=== PATIENT | male | born 1995 | race Caucasian/White ===

== ENCOUNTER 2016-12-15 12:43 | Emergency (ER) | payer OTHER ==
[~2016-12-15] VITALS: Ht 177.8 cm; Wt 86.2 kg
[2016-12-15] MEDS ORDERED: LEVAQUIN750 M1 PO (14:40)
== END 2016-12-15 15:11 | disposition home or self-care (01) ==
LOC: ED 12:43
DX: J20.9 Acute bronchitis, unspecified (principal); F17.200 Nicotine dependence, unspecified, uncomplicated

== ENCOUNTER 2017-07-14 20:34 | Emergency (ER) | payer OTHER ==
[~2017-07-14] VITALS: Ht 177.8 cm; Wt 83.9 kg
[~2017-07-14 20:34] MED LIST: LEVAQUIN750 M1 PO
[2017-07-14] MEDS ORDERED: SEPTDS PO (21:17)
== END 2017-07-14 21:08 | disposition home or self-care (01) ==
LOC: ED 20:34
DX: H60.11 Cellulitis of right external ear (principal); F17.200 Nicotine dependence, unspecified, uncomplicated; Z79.899 Other long term (current) drug therapy

== ENCOUNTER 2017-07-26 15:47 | Emergency (ER) | payer SELFPAY ==
[~2017-07-26] VITALS: Ht 177.8 cm; Wt 80.7 kg
[~2017-07-26 15:47] MED LIST changes: +SEPTDS PO
[2017-07-26 16:46] LABS: HEMATOCRIT 50.2 % (42.0-52.0); HEMOGLOBIN 16.5 g/dl (14.0-18.0); MEAN CELL VOLUME 91.9 fl (80.0-94.0); MEAN CORPUSCULAR HGB 30.2 pg (27.0-31.0); MEAN CORPUSCULAR HGB CONC 32.9 g/dl (33.0-37.0); MEAN PLATELET VOLUME 10.7 fl (9.6-12.3); PLATELET COUNT AUTOMATED 146 10*3/uL (130-400); RED BLOOD COUNT 5.46 10*6/uL (4.50-5.90); RED CELL DISTRI WIDTH 12.5 % (0-14.5); WHITE BLOOD COUNT 5.9 10*3/uL (4.8-10.8)
[2017-07-26 16:57] LABS: BUN 10 mg/dl (7-24); CHLORIDE 107 mmol/L (98-107); CREATININE 0.87 mg/dL (0.70-1.30); POTASSIUM 4.4 mmol/L (3.5-5.1); SODIUM 141 mmol/L (136-145)
[2017-07-26 17:12] LABS: ATYPICAL LYMPHS 2 % (0-0); TOTAL CELLS COUNTED 100 #CELLS
[2017-07-26 17:13] LABS: PLATELET SUFFICIENCY NORMAL (NORMAL)
== END 2017-07-26 19:38 | disposition home or self-care (01) ==
LOC: ED 15:47
PROVIDERS: Physician Assistant
DX: J11.1 Influenza due to unidentified influenza virus with other respiratory manifestations (principal); F17.200 Nicotine dependence, unspecified, uncomplicated